=== PATIENT | female | born 1985 | race Caucasian/White ===

== ENCOUNTER 2017-04-29 08:07 | Emergency (ER) | payer OTHER ==
[2017-04-29] MEDS ORDERED: Ketorolac Tromethamine 30 MG/ML VIAL ONE (08:23)
[2017-04-29 08:25] LABS: Bilirubin Negative (Negative); Blood, Urine Large (Negative); Glucose, Urine (Dipstick) Negative (Negative); Ketone, Urine Negative (Negative); Nitrite Negative (Negative); Protein, Urine (Dipstick) Negative (Neg-Trace); Urobilinogen 0.2 mg/dL (0.2-1.0)
[2017-04-29] MEDS ORDERED: Ondansetron HCl/PF 4 MG/2 ML Vial ONE (08:31)
[2017-04-29 08:34] LABS: Bacteria/HPF 2+ HPF (None Seen); Hyaline Casts/LPF NONE SEEN LPF (0-3 Hyaline); RBC/HPF 0-3 HPF (0-3); Squamous Epithelial 0-3 HPF (0-3); WBC/HPF 0-3 HPF (0-3)
[2017-04-29 08:50] LABS: #Eosinphils 0.1 thou/uL (0.0-0.7); #Lymphocytes 1.7 thou/uL (1.20-3.40); #Monocytes 0.4 thou/uL (0.11-0.59); #Neutrophils 3.5 thou/uL (1.40-6.50); %Basophils 0.7 % (0.0-1.0); %Eosinophils 1.3 % (0.0-10.0); %Lymphocytes 29.9 % (21.0-51.0); %Monocytes 7.4 % (0.0-10.0); Hematocrit 38.6 % (36.0-47.0); Mean Platelet Volume 7.5 fL (7.4-10.4); Red Blood Cell (RBC) Count 4.55 mill/uL (4.20-5.40); White Blood Cell (WBC) Count 5.8 thou/uL (4.8-10.8)
[2017-04-29 09:04] LABS: ALT (SGPT) 18 U/L (8-55); AST (SGOT) 16 U/L (5-34); Alkaline Phosphatase 68 U/L (40-150); Anion Gap 16 mmol/L (10-20); BUN (Urea Nitrogen) 11 mg/dL (7.0-18.7); Bilirubin, Total 0.3 mg/dL (0.2-1.2); Calc. Creatinine Clearance 0 mL/min (70-130); Calcium 8.8 mg/dL (7.8-10.44); Carbon Dioxide 20 mmol/L (22-29); Chloride 108 mmol/L (98-107); Estimated GFR-MDRD 85; Globulin 2.8 g/dL (2.4-3.5); Protein, Total 6.8 g/dL (6.0-8.3)
--- NOTE | 2017-04-29 10:55 | CT ---
NONCONTRAST ENHANCED CT IMAGES OF ABDOMEN AND PELVIS: Date: 04/29/17 HISTORY: Right-sided flank pain with hematuria. FINDINGS: Noncontrast enhanced CT images of abdomen and pelvis obtained. FINDINGS: The lung bases are unremarkable. No evidence of free intraperitoneal air is seen. The liver, spleen, gallbladder, pancreas, and adrenal glands are unremarkable. The left kidney is unr emarkable. The right kidney demonstrates moderate significant hydroureteronephrosis. The right renal pelvis and right ureter are dilated along its entire course. This patient may have a noncalcified right renal ca lculus versus recently passed right renal calculus. Correlation with CT IVP may be of use to further evaluate the right ureter and to determine the exact point of obstruction if clinically indicated. Normal appendix is seen. The uterus is unremarkable. There is slight asymmetric enlargement of the le ft ovary. IMPRESSION: Abnormally dilated right renal collecting system, but no definite visible evidence of obstructing rig ht ureteral calculi seen. POS: [facility]
== END 2017-04-29 09:42 | disposition home or self-care (01) ==
LOC: SCSER 08:07
DX: N13.2 Hydronephrosis with renal and ureteral calculous obstruction (principal)
CPT/HCPCS: 74176; 80053; 81003; 81015; 81025; 85025; 87086; 96361; 96374; 96375; J1885; J2405

== ENCOUNTER 2019-07-15 05:07 | Inpatient (IN) | payer OTHER ==
[2019-07-15 05:30] VITALS: BMI 36.6
[2019-07-15] MEDS: Lactated Ringer's 1,000 ML IV SCH ×2 (05:35→08:38)
[2019-07-15] MEDS ORDERED: Butorphanol Tartrate 1 MG/ML VIAL SLOW IVP PRN (05:42)
[2019-07-15] MEDS ORDERED: Ibuprofen 800 MG TAB PO PRN (05:42)
[2019-07-15] MEDS ORDERED: HYDROcodone/Acetaminophen 5/325 mg Tablet PO PRN ×4 (05:42→19:05)
[2019-07-15] MEDS ORDERED: Promethazine HCl 25 MG/ML VIAL IM PRN ×3 (05:42→19:05)
[2019-07-15] MEDS ORDERED: Lactated Ringer's 1,000 ML IV SCH (05:42)
[2019-07-15] MEDS ORDERED: Ondansetron PF 4 MG/2 ML Vial IVP PRN ×3 (05:42→19:05)
[2019-07-15] MEDS ORDERED: NS / Oxytocin 40 units/1000ml 1,000 ML IV PRN (05:42)
[2019-07-15] MEDS ORDERED: NS w/ Oxytocin 10 units 500 ML IV SCH (05:42)
[2019-07-15] MEDS ORDERED: Lidocaine 1% (PF) 30 ML VIAL SC PRN (05:42)
[2019-07-15 06:03] LABS: Hemoglobin 11.9 g/dL (12.0-16.0); Mean Corpuscular HGB CONC 33.9 g/dL (32.0-36.0); Mean Corpuscular Hemoglobin 27.4 pg (27.0-31.0); Mean Corpuscular Volume 80.8 fL (78.0-98.0); Mean Platelet Volume 8.9 fL (7.4-10.4); Platelet Count 201 thou/uL (130-400); RBC Distribution Width 13.6 % (11.5-14.5); Red Blood Cell (RBC) Count 4.35 mill/uL (4.20-5.40); White Blood Cell (WBC) Count 10.1 thou/uL (4.8-10.8)
[2019-07-15 06:42] LABS: HBSAg Index 0.23 S/CO (0-0.99); Hep B Surf Ag Non-Reactive S/CO (NonReactive)
[2019-07-15 06:43] LABS: Syphilis Antibody Nonreactive (Nonreactive); Syphilis Antibody Index 0.05 S/CO (<1.00 Non-Reactive)
[2019-07-15] MEDS ORDERED: Fentanyl 4 mcg/Bup 0.1% Cadd 100 ML ONE (07:50)
[2019-07-15] MEDS ORDERED: diphenhydrAMINE 50 MG/ML VIAL IVP PRN (08:35)
[2019-07-15] MEDS ORDERED: EPHEDRINE 25 MG/5 ML SYRINGE SLOW IVP PRN (08:35)
[2019-07-15] MEDS ORDERED: Lactated Ringer's 500 ML IV PRN (08:35)
[2019-07-15] MEDS ORDERED: Naloxone HCl 0.4 mg/ml Vial IVP PRN ×2 (08:35)
[2019-07-15] MEDS ORDERED: Acetaminophen 325 MG TAB PO PRN (08:35)
[2019-07-15] MEDS ORDERED: Fentanyl 4 mcg/Bupivacaine 0.1% Cassette 100 ML EPIDURAL SCH (08:45)
[2019-07-15] MEDS ORDERED: Communication Order-Pharmacy FS SCH (08:45)
[2019-07-15] MEDS ORDERED: Lidocaine 2% MPF 10 ML AMP (For Epidural Use) ONE (08:56)
[2019-07-15] MEDS ORDERED: FLU VACC QS2019-20(6MOS UP)/PF 60 MCG/0.5 ML SYRINGE IM ONE (10:15)
[2019-07-15] MEDS ORDERED: hydrALAZINE 20 MG/ML VIAL ONE (11:15)
[2019-07-15] MEDS: hydrALAZINE 20 MG/ML VIAL SLOW IVP PRN ×4 (11:16→17:16)
[2019-07-15] MEDS ORDERED: Calcium Gluc 4.6 MEQ/10 ML (100 MG/ML) SLOW IVP PRN (12:19)
[2019-07-15] MEDS ORDERED: Magnesium Sulfate 20 GM/WATER 500 ML BAG IVPB SCH (12:30)
[2019-07-15] MEDS ORDERED: Magnesium Sulfate 20 gm/500 ml 20 GM/500 ML BAG IVPB SCH ×2 (12:30→19:05)
[2019-07-15 13:04] LABS: AST (SGOT) 14 U/L (5-34); Anion Gap 12 mmol/L (10-20); BUN (Urea Nitrogen) 7 mg/dL (7.0-18.7); Calc. Creatinine Clearance 238 mL/min (70-130); Carbon Dioxide 24 mmol/L (22-29); Chloride 107 mmol/L (98-107); Estimated GFR-MDRD Greater than 90; Glucose 89 mg/dL (70-105); Potassium 3.9 mmol/L (3.5-5.1); Sodium 139 mmol/L (136-145)
[2019-07-15] MEDS ORDERED: Carboprost 250 MCG/ML AMP ONE (15:50)
[2019-07-15] MEDS ORDERED: Misoprostol 200 MCG TAB ONE (15:50)
--- NOTE | 2019-07-15 17:14 | OP ---
DATE OF PROCEDURE: 07/15/2019 PREOPERATIVE DIAGNOSES: 36 weeks and 6 days with severe preeclampsia, induction of labor. POSTOPERATIVE DIAGNOSES: 36 weeks and 6 days with severe preeclampsia, induction of labor. PROCEDURE PERFORMED: Normal spontaneous vaginal delivery with second-degree midline laceration. EXECUTIVE CHAIRMAN: ANESTHESIA: Epidural. QBL: Less than 750 mL, pending. COMPLICATIONS: None. OPERATIVE FINDINGS: 1. Vigorous female infant, 1618, Apgars and weight pending to nursery. 2. Normal-appearing placenta intact. 3. Normal cord blood collection. 4. Cryobank cord blood collection. 5. Second-degree midline laceration repair. DISPOSITION: LICU care for severe preeclampsia. DESCRIPTION OF PROCEDURE: The patient progressed to complete complete +2 station with several pushes. She delivered over well-supported perineum and was delivered and placed on the maternal abdomen. Cord was clamped and cut and handed off to the nurse in attendance. Usual cord blood sample obtained as sterilization carried out approximately 6 cm segment of the mid umbilical cord and a full bag of Cryo-Cell cord blood collection was obtained and approximately 10 cm segment of umbilical cord was isolated and sent as well. Second-degree laceration was repaired using 2-0 chromic suture in the usual manner. Counts were correct at the end of the procedure. The patient entered into the LICU care. Job ID: [id number]
[2019-07-15] MEDS ORDERED: Benzocaine-Menthol 82.5 ML CAN TOP PRN (19:05)
[2019-07-15] MEDS ORDERED: Lanolin Ointment 7 GM TUBE TOP PRN (19:05)
[2019-07-15] MEDS ORDERED: Calcium Gluconate 4.6 MEQ in Sodium Chloride 0.9% 100 ML IVPB PRN (19:05)
[2019-07-15] MEDS ORDERED: Preparation H Ointment 28 GM TUBE PR PRN (19:05)
[2019-07-15] MEDS ORDERED: Milk Of Magnesia 30 ML UDCUP PO PRN (19:05)
[2019-07-15] MEDS ORDERED: Zolpidem Tartrate 5 MG TAB PO PRN (19:05)
[2019-07-15] MEDS ORDERED: Bisacodyl 10 MG SUPP PR PRN (19:05)
[2019-07-15] MEDS ORDERED: diphenhydrAMINE 25 MG CAP PO PRN (19:05)
[2019-07-15] MEDS ORDERED: NS / Oxytocin 40 units/1000ml 1,000 ML IV SCH (19:05)
[2019-07-15] MEDS ORDERED: Ferrous Sulfate 325 MG TAB PO SCH (19:15)
--- NOTE | 2019-07-16 07:17 | PRG ---
DATE OF SERVICE: 07/16/2019 TIME OF SERVICE: 06:30. SUBJECTIVE: The patient is resting comfortably on ICU care on Labor and Delivery unit. OBJECTIVE: VITAL SIGNS: Blood pressure is running in the 130s over 90s. Temperature 98.2, pulse 94, and respirations 18. Urine output has been 100 to 200 mL/h. DTRs are 1+. ABDOMEN: She denies headaches, scotoma, or right upper quadrant pain. Fundus is firm. Normal lochia. EXTREMITIES: No clubbing, cyanosis, or edema. IMPRESSION: Approximately 18 hours post delivery with good urine output and normalization of blood pressures on magnesium sulfate. PLAN: Discontinue magnesium sulfate, transfer to routine care. Job ID: [id number]
[2019-07-16] MEDS ORDERED: Adacel (T-DAP) 0.5 ML SYRINGE IM ONE (09:00)
[2019-07-16] MEDS: Docusate Calcium (SURFAK) 240 MG CAP PO SCH ×3 (10:27→21:42)
[2019-07-16] MEDS: Ferrous Sulfate 325 MG TAB PO SCH ×2 (10:37→18:22)
[2019-07-16] MEDS: Ibuprofen 800 MG TAB PO SCH ×4 (10:37→21:42)
[2019-07-16] MEDS: Prenatal Vitamin 1 TAB PO SCH (10:37)
[2019-07-17] MEDS: Ibuprofen 800 MG TAB PO SCH (06:23)
[2019-07-17 08:25] VITALS: BP 131/82; TEMP 98.4
[2019-07-17] MEDS: Ferrous Sulfate 325 MG TAB PO SCH ×2 (08:54→10:55)
[2019-07-17] MEDS: Prenatal Vitamin 1 TAB PO SCH (08:55)
[2019-07-17] MEDS: Docusate Calcium (SURFAK) 240 MG CAP PO SCH (08:56)
== END 2019-07-17 09:40 | disposition home or self-care (01) | DRG 807 ==
LOC: L&D 05:07 → 3SE 07-16 08:11
PROVIDERS: ADMIT Obstetrics & Gynecology; ATTEND Obstetrics & Gynecology
PROC: 10E0XZZ Delivery of Products of Conception, External Approach (ICD-10-PCS; principal; 2019-07-15)
PROC: 0KQM0ZZ Repair Perineum Muscle, Open Approach (ICD-10-PCS; 2019-07-15)
PROC: 10907ZC Drainage of Amniotic Fluid, Therapeutic from Products of Conception, Via Natural or Artificial Opening (ICD-10-PCS; 2019-07-15)
PROC: 3E033VJ Introduction of Other Hormone into Peripheral Vein, Percutaneous Approach (ICD-10-PCS; 2019-07-15)
DX: O14.14 Severe pre-eclampsia complicating childbirth (principal); Z37.0 Single live birth; Z3A.36 36 weeks gestation of pregnancy; O70.1 Second degree perineal laceration during delivery
CPT/HCPCS: 36415; 51702; 80048; 81003; 83735; 84450; 85027; 86780; 86850; 86900; 86901; 87340; J0360; J2001; J2590; J3475; J3490

== ENCOUNTER 2019-12-02 09:23 | Outpatient (CLI) | payer OTHER | END 2019-12-02 09:24 | disposition home or self-care (01) | LOC: DTY/OP 09:23 | PROVIDERS: ATTEND Surgery | DX: Z01.818 Encounter for other preprocedural examination (principal) | CPT/HCPCS: 97802 ==